=== PATIENT | female | born 1980 | race Caucasian/White ===

== ENCOUNTER 2017-03-26 22:35 | Observation (INO) | payer OTHER, MEDICAID ==
[2017-03-26] MEDS ORDERED: NORMAL SALINE 1,000 ML IV ONE (23:16)
--- NOTE | 2017-03-26 23:20 | ERNOTE ---
Lower Extremity HPI - Narrative Date of Service: 03/26/17 - General Lower Extremities Pain: leg: left Time Seen by Provider: 03/26/17 23:12 Source: patient Exam Limitations: no limitations - Immun/Allergies/Home Medications Immunizations: IMMUNIZATION HX Immunizations Up to Date Yes History of Influenza Vaccine No Hx Pneumococcal Vaccination No Allergies/Adverse Reactions: Allergies Allergy/AdvReac Type Severity Reaction Status Date / Time No Known Allergies Allergy Unverified 06/01/14 20:52 Home Medications: HOME MEDICATIONS Cholecalciferol [Vitamin D] 1,000 unit MC DAILY 03/26/17 [Last Taken Unknown] Glycopyrrolate 2 mg PO DAILY PRN 03/26/17 [Last Taken Unknown] Sulfamethoxazole/Trimethoprim [Bactrim Ds] 1 tab PO BID 03/26/17 [Last Taken Unknown] - History of Present Illness Narrative: 7-year-old healthy female developed a lesion on her left calf approximately 8 days ago. The lesion has been worsening over the past 8 days. Increasing erythema swelling pain and tenderness. She saw her primary care physician last was placed on Bactrim twice daily. It continues to worsen. She has had chills but no fever. No nausea vomiting diarrhea. There is been no drainage from the lesion however there is a central face where there is some discoloration. No known etiology Review of Systems - Review of Systems Constitutional: Present: chills. Absent: fever EYE: Present: no symptoms reported ENT: Present: no symptoms reported Respiratory: Present: no symptoms reported. Absent: shortness of breath, cough Cardiology: Present: no symptoms reported. Absent: chest pain Gastrointestinal/Abdominal: Present: no symptoms reported. Absent: nausea, vomiting, diarrhea Genitourinary: Present: no symptoms reported Musculoskeletal: Present: See HPI Skin: Present: See HPI Neurological: Present: no symptoms reported. Absent: weakness, numbness Endocrine: Present: no symptoms reported Hematologic/Lymphatic: Present: no symptoms reported All Other Systems: All systems neg except as marked - Patient's Past Medical History Patient History - Medical: No pertinent hx Patient History - Cardiac/Respiratory: No pertinent hx Patient History - Cancer: No Hx of Cancer Patient History - Surgical Procedures: Other Patient History - Other: None LMP (females 10-50): now - Family History Father Family History - Medical: Family History - Cardiac/Respiratory: COPD Mother Family History - Cardiac/Respiratory: COPD - Social History Living Situations: spouse Psych History: No pertinent hx Smoking Status: Current every day smoker Have you smoked in the past 12 months: Yes Alcohol Use: rarely Drug Use: none - Immunizations Immunizations Up to Date: Yes Hx Pneumococcal Vaccination: No History of Influenza Vaccine: No Physical Exam - Physical Exam General Appearance: Present: wd/wn, alert, no apparent distress Head Exam: Present: normal inspection Eye Exam: Normal inspection: bilateral Ears, Nose, Throat: Present: normal ENT inspection Neck: Present: normal inspection Respiratory: Present: no respiratory distress, normal breath sounds, no accessory muscle use, chest nontender, lungs clear Cardiovascular/Chest: Present: regular rate, rhythm, no murmur, normal peripheral pulses Gastrointestinal/Abdominal: Present: normal bowel sounds, nontender, soft Extremity Exam: Present: calf tenderness, other - the left calf is markedly edematous and erythematous with induration. There is a central dark area with discoloration. No drainage. There is no fluctuance. Neurological Exam: Present: alert, oriented, no motor/sensory deficits Skin Exam: Present: normal color, warm/dry ED Progress - Date and Time Seen: Date and Time: 03/27/17 04:15 I will let the hospitalist initiate antibiotic intravenous therapy. Patient is going immediately to the floor. - Vital Signs Vital Signs: Vital Signs 03/26/17 22:40 Temperature 37.1 C Pulse Rate 104 H Respiratory 16 Rate Blood Pressure 130/87 O2 Sat by Pulse 99 Oximetry - Progress/Reassessment Chief Complaint: Lower Extremity Pain/ Injury Progress:: Unchanged - Transfer of Care Expected Disposition: Admit Additional Notes: Patient will be admitted to the medical floor. She needs IV antibiotics and is failed outpatient treatment with Bactrim. I cultured the wound on the left lower extremity. Cultures are pending. Spoke with Leighann Lilly N.P. She has accepted the patient for admission. Patient may need CT scan with contrast in the morning of the calf to rule out deep space infection such as abscess. However I low index of suspicion for abscess at this time. Departure Clinical Impression: Cellulitis Qualifiers: Site of cellulitis: extremity Site of cellulitis of extremity: lower extremity Laterality: left Qualified Code(s): L03.116 - Cellulitis of left lower limb - Departure Disposition: [facility] Condition: Stable
[2017-03-26 23:31] LABS: Hematocrit 34.5 % (37.0-47.0); Hemoglobin 11.9 gm/dL (12.5-16.0); Mean Cell Volume 93.8 fl (78-100); Mean Corpuscular Hemoglobin 32.3 pg (27-31); Mean Corpuscular Hgb Conc 34.5 g/dl (32-36); Mean Platelet Volume 10.1 fl (6.0-9.5); Neutrophil # 5.7 K/mm3 (1.3-6.0); Neutrophil % 66.5 % (42-75.0); Platelet Count 201 K/mm3 (150-450); Red Blood Count 3.68 M/mm3 (4.2-5.4); Red Cell Distribution Width 11.8 % (11.5-14.0); White Blood Count 8.6 K/mm3 (4.0-10.5)
[2017-03-26 23:44] LABS: Albumin * 3.4 gm/dl (3.4-5.0); Anion Gap 11.6 mmol/L (6.8-13.8); BUN/Creatinine Ratio 16.5 (9.0-21.6); Bilirubin, Total 0.4 mg/dL (0.0-1.1); CRP 6.9 mg/dL (0.0-0.9); Ca. Corrected For Albumin 8.5 mg/dL (8.4-10.2); Calcium * 8.3 mg/dL (7.9-10.9); Carbon Dioxide 28.3 mmol/L (24-32.6); Potassium 3.9 mmol/L (3.4-4.6); Total Protein 7.2 gm/dL (6.2-8.2)
--- NOTE | 2017-03-27 01:27 | HP ---
Chief Complaint - Chief Complaint Date of Service: 03/27/17 Time of Service: 01:27 Chief Complaint: "Increaing left Leg pain, worsening swelling and redness". Source of HPI- Pt, reliable, ERP report. History of Present Illness: Ms. Carlson is a 37-yr-old [facility] pt with pertinent medical history of: Anemia of Chronic disease, Depression,Pelvic inflammatory disease and Restless leg syndrome Pt states that on , she suddenly developed itching and swelling on the left calf. She thought she may have had a spider/bug bite due to the itching and small bullae. The area got increasingly red and was painful. She went to a walk-in clinic and was given a prescription of Bactrim DS bid x 10 days. She took the medicine as advised. However, she states that she did not notice any difference. The area got increasingly painful, swollen, red and hot. She denies fevers, but reports having chills. On physical exam, she was noted to have erythema on left calf with an open draining wound and with eschar tissue. Her labs were mostly unremarkable except for CRP of 6.9. She was afebrile. Culture of the wound collected. She will be admitted under observation status for IV antibiotics and to monitor it's response of the cellulitis especially since she has failed outpatient treatment. Of-note pt was treated at the [facility] on 06/02/14-06/10/14 for tubo-ovarian abscesses that required percutanous drainage catheter. The abscesses culture showed growth of valero- sensitive e-coli and received treatment cefoxitin IV, doxycycline and flagyl. She continues to have follow-up of the cystic lesions every 6 months at the [facility]. - Patient's Past Medical History Patient History - Medical: No pertinent hx, Depression, Other - Cysts, Anemia of Chronic disease,Pelvic inflammatory disease and Restless leg syndrome Patient History - Cardiac/Respiratory: No pertinent hx Patient History - Cancer: No Hx of Cancer Patient History - Surgical Procedures: Other Patient History - Other: None LMP (females 10-50): now - Family History Father Family History - Medical: Family History - Cardiac/Respiratory: COPD Mother Family History - Cardiac/Respiratory: COPD - Social History Living Situations: spouse Psych History: No pertinent hx Smoking Status: Current every day smoker Have you smoked in the past 12 months: Yes Do you dip or chew tobacco: No Smoking Start Date: 03/27/97 Patient requests Smoking Cessation Consult: No Initiate information on Smoking Cessation: No Alcohol Use: rarely Drug Use: none - Immunizations Immunizations Up to Date: Yes Hx Pneumococcal Vaccination: No History of Influenza Vaccine: No Review Of Systems (GEN) - Review of Systems Generalized/Overall Review: Present: Malaise, Fatigue. Absent: Weakness, Chills , Fever EENTM: Absent: Eye Pain, Blurred Vision, Tearing Respiratory: Absent: Cough, Shortness of Breath, Orthopnea Cardiac: Absent: Chest Pain, Edema, Palpitations, Syncope Abdominal: Absent: Nausea, Vomiting, Hematemesis, Abdominal Pain, Constipation Genitourinary: Absent: Burning, Itching, Urgency, Dribbling, Incontinent Musculoskeletal: Present: Joint Pain. Absent: Back Pain, Joint Swelling, Gout Neurological: Present: Headache. Absent: Anxiety, Depressed Skin: Absent: Dryness, Lesions, Lumps, Bruising Endocrine: Present: Intolerance to Heat, Flushing. Absent: Intolerance to Cold , Increased Thirst Misc: All systems neg except as marked Immunizations: IMMUNIZATION HX Immunizations Up to Date Yes History of Influenza Vaccine No Hx Pneumococcal Vaccination No Allergies/Adverse Reactions: Allergies Allergy/AdvReac Type Severity Reaction Status Date / Time No Known Allergies Allergy Unverified 06/01/14 20:52 Home Medications: HOME MEDICATIONS Cholecalciferol [Vitamin D] 1,000 unit MC DAILY 03/26/17 [Last Taken Unknown] Glycopyrrolate 2 mg PO DAILY PRN 03/26/17 [Last Taken Unknown] Sulfamethoxazole/Trimethoprim [Bactrim Ds] 1 tab PO BID 03/26/17 [Last Taken Unknown] Exam - Exam Vital Signs: Vital Signs - Last Taken Temp 36.6 C 03/27/17 00:55 Pulse 88 03/27/17 00:55 Resp 18 03/27/17 00:55 BP 113/65 03/27/17 00:55 Pulse Ox 100 03/27/17 00:55 Constitutional: Present: Alert, Oriented x3, Cooperative, No distress ENT Exam: Present: normal ENT inspection Eye Exam: bilateral eye: normal inspection, PERRL Neck: Present: non-tender, full range of motion, supple Back Exam: Present: normal inspection, no CVA tenderness Breasts: Present: Exam deferred Respiratory: Present: lungs clear, No rales, No wheezing Cardiovascular/Chest: Present: normal peripheral pulses, regular rate, rhythm Abdomen: Present: Normal bowel sounds, soft, nontender /Rectal: Present: Exam deferred Extremity: Present: calf tenderness - LT Skin Exam: Present: other - Erythema of calf on LT foot with an open wound measuring approxiamately 2.5 x 2.0 Lymphatic: Present: no adenopathy Neurologic: Present: alert, normal mood/affect, oriented x 3 Appearance: Present: appropriate appearance, appropriate insight Eye contact: Present: cooperative, good eye contact, normal speech Thoughts: Present: normal thought pattern, no apparent hallucination Diagnostic Studies: Laboratory Results WBC 8.6 K/mm3 (4.0-10.5) 03/26/17 23:25 RBC 3.68 M/mm3 (4.2-5.4) L 03/26/17 23:25 Hgb 11.9 gm/dL (12.5-16.0) L 03/26/17 23:25 Hct 34.5 % (37.0-47.0) L 03/26/17 23:25 MCV 93.8 fl (78-100) 03/26/17 23:25 MCH 32.3 pg (27-31) H 03/26/17 23:25 MCHC 34.5 g/dl (32-36) 03/26/17 23:25 RDW 11.8 % (11.5-14.0) 03/26/17 23:25 Plt Count 201 K/mm3 (150-450) 03/26/17 23:25 MPV 10.1 fl (6.0-9.5) H 03/26/17 23:25 Immature Gran % (Auto) 0.20 % (0.001-0.429) 03/26/17 23:25 Immature Gran # (Auto) 0.02 K/mm3 (0.000-0.0310) 03/26/17 23:25 Neutrophils % 66.5 % (42-75.0) 03/26/17 23:25 Lymphocytes % 25.1 % (20-51) 03/26/17 23:25 Monocytes % 6.5 % (0.0-9) 03/26/17 23:25 Eosinophils % 1.1 % (0.0-3.0) 03/26/17 23:25 Basophils % 0.6 % (0.0-1.0) 03/26/17 23:25 Nucleated RBC % 0.0 k/mm3 (0-1) 03/26/17 23:25 Neutrophils # 5.7 K/mm3 (1.3-6.0) 03/26/17 23:25 Lymphocytes # 2.2 k/mm3 (1.5-3.5) 03/26/17 23:25 Monocytes # 0.6 k/mm3 (0.0-1.0) 03/26/17 23:25 Eosinophils # 0.1 k/mm3 (0.0-0.7) 03/26/17 23:25 Absolute Basophils 0.1 k/mm3 (0.0-0.1) 03/26/17 23:25 Sodium 140 mmol/L (132-142) 03/26/17 23:25 Plasma Sodium 140 mmol/L (130-142) 03/26/17 23:25 Potassium 3.9 mmol/L (3.4-4.6) 03/26/17 23:25 Chloride 104 mmol/L (97-106) 03/26/17 23:25 Carbon Dioxide 28.3 mmol/L (24-32.6) 03/26/17 23:25 Anion Gap 11.6 mmol/L (6.8-13.8) 03/26/17 23:25 BUN 13 mg/dL (3-23) 03/26/17 23:25 Creatinine 0.79 mg/dL (0.4-1.4) 03/26/17 23:25 Est GFR (Non-Af Amer) 87 mL/min (60-130) 03/26/17 23:25 BUN/Creatinine Ratio 16.5 (9.0-21.6) 03/26/17 23:25 Random Glucose 103 mg/dL (70-110) 03/26/17 23:25 Calcium 8.3 mg/dL (7.9-10.9) 03/26/17 23:25 Calcium Adj for Albumin 8.5 mg/dL (8.4-10.2) 03/26/17 23:25 Total Bilirubin 0.4 mg/dL (0.0-1.1) 03/26/17 23:25 AST 46 U/L (0-48) 03/26/17 23:25 ALT 57 U/L (19-67) 03/26/17 23:25 Alkaline Phosphatase 74 U/L (50-170) 03/26/17 23:25 C-Reactive Prot, Quant 6.9 mg/dL (0.0-0.9) H 03/26/17 23:25 Total Protein 7.2 gm/dL (6.2-8.2) 03/26/17 23:25 Albumin 3.4 gm/dl (3.4-5.0) 03/26/17 23:25 Assessment/Plan - Assessment/Plan (1) Cellulitis Assessment: Pt is a 37-yr-old W[place] pt who presented with cellultis on calf of LT foot that has failed to an outpatient treatment with Bactrim. The area appears swollen, hot to touch and tender with a wound opening that has escar tissue. She has malaise, chills but no fevers. She may need imaging of the the extremity which may be helpful in identifying complications such as abscess or other deep tissues infections. She has no signs of systemic infection but blood and wound cultures are pending. She has no risk factors for MRSA or SIRS and so Vanc/ zosyn are not needed to be used. Will start her on Clindamycin 60mg IV q 8 hours which can target streptococcus and MRSA and which will be transitioned to oral route. Antibiotics continuation and class will be determined by the culture results. Monitor CBC in am. Problem: Acute Qualifiers: Site of cellulitis: extremity Site of cellulitis of extremity: lower extremity Laterality: left Qualified Code(s): L03.116 - Cellulitis of left lower limb
[2017-03-27] MEDS ORDERED: GLYCOPYRROLATE 2 MG PO PRN (02:09)
[2017-03-27] MEDS ORDERED: CLINDAMYCIN PHOSPHATE 600 MG in DEXTROSE 5 % IN WATER 100 ML IV SCH ×2 (02:15)
[2017-03-27] MEDS ORDERED: KETOROLAC TROMETHAMINE 15 MG/ML VIAL IV PRN (02:36)
[2017-03-27 05:52] LABS: Hematocrit 32.2 % (37.0-47.0); Hemoglobin 11.1 gm/dL (12.5-16.0); Mean Cell Volume 94.2 fl (78-100); Mean Corpuscular Hemoglobin 32.5 pg (27-31); Mean Corpuscular Hgb Conc 34.5 g/dl (32-36); Mean Platelet Volume 10.6 fl (6.0-9.5); Neutrophil # 4.1 K/mm3 (1.3-6.0); Neutrophil % 55.8 % (42-75.0); Platelet Count 198 K/mm3 (150-450); Red Blood Count 3.42 M/mm3 (4.2-5.4); Red Cell Distribution Width 11.9 % (11.5-14.0); White Blood Count 7.3 K/mm3 (4.0-10.5)
[2017-03-27] MEDS ORDERED: CHOLECALCIFEROL 1,000 UNIT CAPSULE PO SCH (09:00)
[2017-03-27 10:04] VITALS: BP 101/58
[2017-03-27] MEDS ORDERED: CLINDAMYCIN PHOSPHATE IV SCH (10:30)
[2017-03-27] MEDS ORDERED: NORMAL SALINE IV SCH (10:30)
== END 2017-03-27 13:10 | disposition left against medical advice (07) ==
LOC: ER 22:35 → MS 23:57
PROVIDERS: ADMIT Nurse Practitioner; ATTEND Internal Medicine
DX: L03.116 Cellulitis of left lower limb (principal); B95.62 Methicillin resistant Staphylococcus aureus infection as the cause of diseases classified elsewhere; N73.9 Female pelvic inflammatory disease, unspecified; D63.8 Anemia in other chronic diseases classified elsewhere; G25.81 Restless legs syndrome; F32.9 Major depressive disorder, single episode, unspecified; F17.290 Nicotine dependence, other tobacco product, uncomplicated; Z68.27 Body mass index [BMI] 27.0-27.9, adult; Z53.21 Procedure and treatment not carried out due to patient leaving prior to being seen by health care provider
CPT/HCPCS: 36415; 80053; 85025; 85652; 86140; 87040; 87070; 87077; 87186; 96365; 96366; 96375; 99284; G0378